=== PATIENT | male | born 1960 | race Caucasian/White ===

== ENCOUNTER 2019-06-07 15:55 | Outpatient (CLI) | payer SELFPAY ==
[2019-06-07 16:24] LABS: Prothrombin Time 41.8 SEC (12.0-14.7)
[2019-06-07 16:45] LABS: INR-International Normal Ratio 4.4
== END 2019-06-07 15:56 | disposition home or self-care (01) ==
LOC: MADLAB 15:55
PROVIDERS: ATTEND Family Medicine
DX: Z51.81 Encounter for therapeutic drug level monitoring (principal); I82.90 Acute embolism and thrombosis of unspecified vein; Z79.01 Long term (current) use of anticoagulants
CPT/HCPCS: 36415; 85610

== ENCOUNTER 2020-07-21 11:10 | Outpatient (CLI) | payer OTHER, SELFPAY ==
[2020-07-21 11:51] LABS: INR-International Normal Ratio 3.2; Prothrombin Time 33.7 sec (12.0-14.7)
== END 2020-07-21 11:11 | disposition home or self-care (01) ==
LOC: MADLAB 11:10
PROVIDERS: ATTEND Family Medicine
DX: I82.90 Acute embolism and thrombosis of unspecified vein (principal)
CPT/HCPCS: 36415; 85610